=== PATIENT | male | born 1985 | race Caucasian/White ===

== ENCOUNTER → 2020-12-02 | Outpatient (CLI) | payer OTHER | LOC: EMI 11:18 | DX: M25.512 Pain in left shoulder (principal); R60.0 Localized edema; R93.6 Abnormal findings on diagnostic imaging of limbs | CPT/HCPCS: 73221 ==

== ENCOUNTER 2021-05-14 19:03 | Inpatient (IN) | payer OTHER ==
[~2021-05-14] VITALS: Ht 193 cm; Wt 63.5 kg
[2021-05-14 20:01] LABS: HEMOGLOBIN 14.1 gm/dl (14.0-17.5); RED BLOOD COUNT 4.27 M/UL (4.20-5.50)
[2021-05-14 20:43] LABS: BUN/CREATININE RATIO 19 (0-10)
[2021-05-15 03:35] LABS: HEMOGLOBIN 12.2 gm/dl (14.0-17.5); WHITE BLOOD COUNT 13.3 K/UL (4.5-11.0)
[2021-05-15 03:43] LABS: RED BLOOD COUNT 3.72 M/UL (4.20-5.50)
[2021-05-15 04:00] LABS: BUN/CREATININE RATIO 19 (0-10)
[2021-05-15] MEDS ORDERED: GABAPENTIN300 MG PO (11:19)
[2021-05-15] MEDS ORDERED: HUMALOG 10100 UNITS/ SC (11:20)
[2021-05-15] MEDS ORDERED: LINZESS290 MCG PO (11:21)
[2021-05-15] MEDS ORDERED: METOCLOPRAMIDE10 MG PO (11:23)
[2021-05-15] MEDS ORDERED: MOTEGRITY2 MG PO (11:23)
[2021-05-16 05:15] LABS: ACINETOBACTER BAUMANNII Not Detected (Negative); CANDIDA ALBICANS Not Detected (Negative); CANDIDA KRUSEI Not Detected (Negative); CANDIDA TROPICALIS Not Detected (Negative); ENTEROCOCCUS Not Detected (Negative); ESCHERICHIA COLI Not Detected (Negative); HAEMOPHILUS INFLUENZAE Not Detected (Negative); KLEBSIELLA OXYTOCA Not Detected (Negative); KLEBSIELLA PNEUMONIAE Not Detected (Negative); KPC-CARBAPENEM-RESISTANCE GENE Not Detected (Negative); PROTEUS Not Detected (Negative); PSEUDOMONAS AERUGINOSA Not Detected (Negative); SERRATIA MARCESANS Not Detected (Negative); STAPHYLOCOCCUS Not Detected (Negative); STAPHYLOCOCCUS AUREUS Not Detected (Negative); STREP AGALACTIAE (GROUP B) Not Detected (Negative); STREP PYOGENES (GROUP A) Not Detected (Negative); STREPTOCOCCUS Not Detected (Negative); mecA (METHICILLIN RESIST GENE Not Detected (Negative); vanA/B (VANCOMYCIN RESIST GENE Not Detected (Negative)
[2021-05-16 12:04] LABS: HEMOGLOBIN 10.7 gm/dl (14.0-17.5); RED BLOOD COUNT 3.45 M/UL (4.20-5.50); WHITE BLOOD COUNT 9.3 K/UL (4.5-11.0)
[2021-05-16 12:26] LABS: BUN/CREATININE RATIO 15 (0-10)
== END 2021-05-16 16:44 | disposition home or self-care (01) | DRG 638 ==
LOC: ER1 19:03 → CDU 05-15 00:12 → M/S 05-15 20:15
PROVIDERS: Emergency Medicine; Internal Medicine; ADMIT Internal Medicine
DX: E10.65 Type 1 diabetes mellitus with hyperglycemia (principal); E87.2 Acidosis; N17.9 Acute kidney failure, unspecified; Z20.822 Contact with and (suspected) exposure to COVID-19; E10.43 Type 1 diabetes mellitus with diabetic autonomic (poly)neuropathy; K31.84 Gastroparesis; J45.909 Unspecified asthma, uncomplicated; E86.0 Dehydration; I10 Essential (primary) hypertension; Z96.41 Presence of insulin pump (external) (internal); Z79.4 Long term (current) use of insulin; Z89.422 Acquired absence of other left toe(s); Z89.421 Acquired absence of other right toe(s); Z98.42 Cataract extraction status, left eye; Z98.41 Cataract extraction status, right eye; Z83.3 Family history of diabetes mellitus; Z88.8 Allergy status to other drugs, medicaments and biological substances
CPT/HCPCS: 36415; 71045; 80048; 80053; 80307; 81001; 82009; 82550; 82553; 82800; 82962; 83036; 83605; 83690; 83735; 83874; 84443; 84484; 85025; 87040; 87075; 87150; 93005; 96365; 96375; 99285; C9113; J2405; J2765; J3370; J7030; J7070; Q9967; U0002